=== PATIENT | female | born 1985 | race Hispanic/Latino ===

== ENCOUNTER 2018-09-27 11:50 | Emergency (ER) | payer OTHER ==
[2018-09-27 11:57] VITALS: RESP 18; O2SAT 100
[2018-09-27] MEDS ORDERED: Sodium Chloride 0.9% 1,000 ML IV STA (12:17)
[2018-09-27 12:45] LABS: EOS % 0.1 % (0.0-4.0); HEMOGLOBIN 12.6 g/dL (12.0-16.0); LYMPH # 0.5 K/uL (1.0-4.3); LYMPH % 3.2 % (20.0-40.0); MEAN CELL VOLUME 84.3 fl (81.0-99.0); MEAN CORPUSCULAR HEMOGLOBIN 27.5 pg (27.0-31.0); MEAN CORPUSCULAR HGB CONC 32.6 g/dL (33.0-37.0); MEAN PLATELET VOLUME 9.8 fl (7.2-11.7); MONO # 0.4 K/uL (0.0-0.8); MONO % 2.3 % (0.0-10.0); NEUT # 15.9 K/uL (1.8-7.0); NEUT % 94.4 % (50.0-75.0); NRBC % 0.1 % (0.0-0.0); PLATELET COUNT 223 K/uL (130-400); RBC 4.59 Mil/uL (3.80-5.20); RED CELL DISTRIBUTION WIDTH 12.9 % (11.5-14.5); WHITE BLOOD COUNT 16.8 K/uL (4.8-10.8)
--- NOTE | 2018-09-27 12:47 | ED PDOC ---
HPI: Abdomen Time Seen by Provider: 09/27/18 11:59 Chief Complaint (Nursing): Abdominal Pain Chief Complaint (Provider): Abdominal Pain History Per: Patient History/Exam Limitations: no limitations Onset/Duration Of Symptoms: Hrs Current Symptoms Are (Timing): Still Present Location Of Pain/Discomfort: Suprapubic Quality Of Discomfort: Cramping Additional Complaint(s): 32 year old female with no past medical history who is 14 weeks is presenting to the ED for evaluation of lower abdominal pain associated with vaginal bleeding onset this morning. Patient states that she had cramping abdominal pain associated with pelvic pain and spotting after which she states that she felt something come out. She also reports weakness, headaches, and lightheadedness but reports that she is urinating normally. Of note, patient reports that she had an ultrasound 2 weeks ago that was normal. PMD: Dr. Dunham Past Medical History Reviewed: Historical Data, Nursing Documentation, Vital Signs Vital Signs: Last Vital Signs Temp 98 F 09/27/18 11:54 Pulse 86 09/27/18 11:54 Resp 18 09/27/18 11:54 BP 132/67 09/27/18 11:54 Pulse Ox 100 09/27/18 11:54 - Medical History PMH: No Chronic Diseases - Surgical History Surgical History: No Surg Hx - Family History Family History: States: Unknown Family Hx - Social History Current smoker - smoking cessation education provided: No Alcohol: None Drugs: Denies - Home Medications Home Medications: Ambulatory Orders Medication Instructions Recorded Ibuprofen [Motrin] 600 mg PO TID 7 Days tab 09/27/18 Misoprostol 200 mcg VAG Q12 #8 tablet 09/27/18 - Allergies Allergies/Adverse Reactions: Allergies Allergy/AdvReac Type Severity Reaction Status Date / Time No Known Allergies Allergy Verified 09/27/18 11:53 Review of Systems ROS Statement: Except As Marked, All Systems Reviewed And Found Negative Constitutional: Positive for: Weakness Gastrointestinal: Positive for: Nausea, Vomiting, Abdominal Pain Genitourinary Female: Positive for: Vaginal Bleeding, Pelvic Pain Neurological: Positive for: Headache, Dizziness Physical Exam - Reviewed Nursing Documentation Reviewed: Yes Vital Signs Reviewed: Yes - Physical Exam Appears: Positive for: Non-toxic, No Acute Distress Head Exam: Positive for: ATRAUMATIC, NORMAL INSPECTION, NORMOCEPHALIC Skin: Positive for: Normal Color, Warm, DRY Eye Exam: Positive for: EOMI, Normal appearance, PERRL ENT: Positive for: Normal ENT Inspection Neck: Positive for: Normal, Painless ROM, Supple Cardiovascular/Chest: Positive for: Regular Rate, Rhythm. Negative for: Murmur Respiratory: Positive for: Normal Breath Sounds. Negative for: Respiratory Di stress Gastrointestinal/Abdominal: Positive for: Soft, Tenderness (across lower pelvis and suprapubic region ) Back: Positive for: Normal Inspection Extremity: Positive for: Normal ROM. Negative for: Deformity, Swelling Neurologic/Psych: Positive for: Alert, Oriented. Negative for: Motor/Sensory D eficits - Laboratory Results Result Diagrams: 09/27/18 12:40 09/27/18 12:40 - ECG O2 Sat by Pulse Oximetry: 100 (RA) Pulse Ox Interpretation: Normal - Progress ED Course And Treament: 1313: Spoke with Dr. Flores. Will see pt. in the ER. 1351: Stable. Spoke with Dr. Flores who evaluated pt. States pt. miscarried. Wants dc with misoprostol 200mg 4 tabs per vagina q12hr, 8 tabls. Pt. stable. AAOx3. Pain controlled. Tolerated PO. Medical Decision Making Medical Decision Making: Time: 12:17 Plan: --Blood Type and Screen --ABO/RH type --Beta-HCG --CMP --ED Urine Dipstick --ED Urine --CBC --IV Fluids --Acetaminophen IV 1,000 mg in 100 ml IVPB --Zofran 4 mg IV --Ultrasound Transvaginal Scribe Attestation: Documented by Merissa William, acting as a scribe for Musa Snow MD. Provider Scribe Attestation: All medical record entries made by the Scribe were at my direction and personally dictated by me. I have reviewed the chart and agree that the record accurately reflects my personal performance of the history, physical exam, medical decision making, and the department course for this patient. I have also personally directed, reviewed, and agree with the discharge instructions and disposition. Disposition - Clinical Impression Clinical Impression: Miscarriage - Patient ED Disposition Is Patient to be Admitted: No Counseled Patient/Family Regarding: Studies Performed, Diagnosis, Need For Followup, Rx Given - Disposition Referrals: Ángela Huertas MD [Staff Provider] - 09/28/18 Disposition: Routine/Home Disposition Time: 13:54 Condition: STABLE Additional Instructions: Return if not better in 3 days. Prescriptions: Ibuprofen [Motrin] 600 mg PO TID 7 Days tab Misoprostol 200 mcg VAG Q12 #8 tablet Instructions: Miscarriage Forms: [facility] (Lithuanian), [facility] ED School/Work Excuse
[2018-09-27 12:59] LABS: ALBUMIN 4.2 g/dL (3.5-5.0); ALT/SGPT 11 U/L (9-52); AST/SGOT 31 U/L (14-36); BLOOD UREA NITROGEN 10 mg/dl (7-17); CALCIUM 9.6 mg/dL (8.4-10.2); GFR NON-AFRICAN AMERICAN > 60
[2018-09-27 13:23] LABS: BANDS 5 % (0-2); LYMPHOCYTE 5 % (20-50); METAMYELOCYTE 1 % (0-0); MONOCYTE 3 % (0-10); NEUTROPHIL 86 % (42-75); TOTAL CELLS COUNTED 100
[2018-09-27 13:24] LABS: PLATELET ESTIMATE NORMAL (NORMAL)
--- NOTE | 2018-09-27 13:34 | US ---
Date of service: 09/27/2018 PROCEDURE: Obstetrical ultrasound examination HISTORY: preg and pain COMPARISON: Not available TECHNIQUE: Transvaginal FINDINGS: Gestational sac identified with pole in the vaginal vault. age could not be accurately determined on this examination. cardiac activity was not detected. There is no intrauterine gestation identified. There is no intrauterine or endocervix fluid or blood appreciated. The right ovary measures 1.8 x 3.3 x 3.7 cm. No mass. Normal blood flow demonstrated. The left ovary measures 4.0 x 2.4 x 3.8 cm. Simple cyst, 1.8 x 1.4 x 2.1 cm. Presumed physiologic. Normal blood flow demonstrated. No adnexal masses are identified. There is no free fluid identified in the pelvis. IMPRESSION: Miscarriage in progress. Gestational sac with pole identified in the vaginal vault. Patient currently bleeding per vagina at the time of this examination.
[2018-09-27 14:53] VITALS: BP 111/77; PULSE 83; TEMP 98.5
--- NOTE | 2018-09-28 08:33 | CP.PCM.PN ---
Subjective - Date & Time of Evaluation Date of Evaluation: 09/27/18 Time of Evaluation: 02:00 - Subjective Subjective: The patient is a 32-year-old 1 para 0 who presents to [facility] complaining of pelvic pressure pain vaginal spotting at 12 weeks gestation. Past medical history none Past surgical history none No known drug allergies Denies alcohol tobacco use Obstetrical history Objective - Vital Signs/Intake and Output Vital Signs (last 24 hours): Temp Pulse Resp BP Pulse Ox 98.5 F 83 18 111/77 100 09/27/18 14:45 09/27/18 14:45 09/27/18 14:45 09/27/18 14:45 09/27/18 14:45 - Labs Labs: 09/27/18 12:40 09/27/18 12:40 Assessment and Plan - Assessment and Plan (Free Text) Assessment: -zxkp complete Speculum exam products noted in the vagina Fetus placenta cord delivered intact Scant bleeding noted post delivery Patient to be discharged home with misoprostol and Motrin
== END 2018-09-27 14:30 | disposition home or self-care (01) ==
LOC: H.ER 11:50
DX: O03.9 Complete or unspecified spontaneous abortion without complication (principal); Z3A.12 12 weeks gestation of pregnancy
CPT/HCPCS: 76815; 80053; 84702; 85025; 86850; 86900; 88305; 96360; 99284; J0131; J2405; J7030